=== PATIENT | male | born 1950 | race Caucasian/White ===

== ENCOUNTER 2018-05-15 11:46 | Day surgery (SDC) | payer MEDICARE, BC ==
[2018-05-10 10:42] VITALS: BMI 19.5
[~2018-05-15 11:46] MED LIST: LACTATED RINGERS 1,000 ML IV SCH; LIDOCAINE 1% 20 ML VIAL (10MG/ML) FOR IV START INTRADERMA PRN; MIDAZOLAM 2 MG/2 ML VIAL IV PRN
[2018-05-15 12:29] VITALS: RESP 20; TEMP 99
[2018-05-15 12:32] LABS: Glucose,Whole Blood 158 mg/dL (75-99)
[2018-05-15] MEDS ORDERED: PROPOFOL 10 MG/ML 20 ML VIAL IV ONE (13:46)
[2018-05-15] MEDS ORDERED: LIDOCAINE 1% INJ 10MG/ML (20 ML MDV) ONE (13:46)
--- NOTE | 2018-05-15 14:14 | P.PCN ---
Date of Procedure: 05/15/18 Procedure(s) Performed: Procedure: Esophagogastroduodenoscopy and biopsy and esophageal dilation using the Microvasive wtzoqdi-xds-iycis balloon dilator size 10-12 mm. Preoperative diagnosis: Dysphagia. Postoperative diagnosis: 1. Proximal esophageal stricture initially impeding the advancement of the endoscope, dilated up to 12 mm. 2. Hiatal hernia with no definite esophagitis. 3. Normal stomach and duodenum. 4. Multiple biopsies obtained from the esophagus. Preparation and sedation: Was provided by anesthesia. Brief clinical history: The patient is a 68-year-old male who is scheduled for this evaluation because of dysphagia of around 1 year duration that seems to have gotten worse recently. He feels food gets caught in his throat. There is history of weight loss. This evaluation is to assess for esophageal stricture or other pathology. Procedure: With the patient on his left lateral decubitus position and after informed consent and adequate sedation, I passed the Olympus-GIF 160 video upper endoscope through the cricopharyngeus. There was a benign-appearing stricture in the proximal esophagus that would not allow the advancement of the endoscope until after it was dilated. I used the Microvasive wdajphn-jph-glndb balloon dilator size 10-12 mm and passed it through the operating channel of the endoscope and centered it at the level of the stricture and inflated it in a stepwise fashion up to 12 mm. After that, I was able to pass the endoscope down the esophagus into the stomach. GE junction was around 40 cm from the incisors and there was a small sliding hiatal hernia. There was no obvious esophagitis or other pathology. The stomach was insufflated with air and inspected in detail including the retroflex view in the cardia. Finally, the endoscope was passed through the pylorus into the duodenum. The stomach, pyloric channel, duodenal bulb, post bulbar area and descending duodenum appeared within normal limits. I obtained multiple biopsies from the esophagus before the endoscope was withdrawn. The patient tolerated the procedure well. Plan: The patient was reassured. He will stay on clear liquids today then he can advance his diet as tolerated. If he continues to have issues, I would consider repeat endoscopy and further dilation of the esophagus. I will keep you updated on his progress.
[2018-05-15 14:15] VITALS: BP 110/59; PULSE 81
== END 2018-05-15 14:48 | disposition home or self-care (01) ==
LOC: ORWHC2ENDO 11:46
DX: K22.2 Esophageal obstruction (principal); K44.9 Diaphragmatic hernia without obstruction or gangrene; K21.9 Gastro-esophageal reflux disease without esophagitis; I48.91 Unspecified atrial fibrillation; J44.9 Chronic obstructive pulmonary disease, unspecified; M54.9 Dorsalgia, unspecified; G89.29 Other chronic pain; Z99.81 Dependence on supplemental oxygen; Z79.891 Long term (current) use of opiate analgesic; Z79.51 Long term (current) use of inhaled steroids; Z79.899 Other long term (current) drug therapy; Z88.2 Allergy status to sulfonamides
CPT/HCPCS: 88305; 43239; 43244; J2001; J2704; C1726